=== PATIENT | female | born 1935 | race African-American/Black ===

== ENCOUNTER 2016-10-28 17:03 | Observation (INO) ==
[2016-10-28] MEDS ORDERED: hydrALAZINE 20 MG/1 ML VIAL IV STA (17:33)
--- NOTE | 2016-10-28 17:38 | Emergency Department Note ---
Arrival - Arrival Chief Complaint: Non-Specific Stated Complaint: DIZZIE & HEADACHE ED Nursing Triage Note: c/o light headed. pt had it beofre and was told she was having a reaction to her bp meds Mode of Arrival: Ambulatory Limitations: No Limitations Source: Patient Time Seen by Provider: 10/28/16 17:33 - History of Present Illness HPI Narrative: This 81-year-old black female presents with a history of several weeks of intermittent lightheadedness and dizziness associated with labile blood pressure. She had a very severe problem with lightheadedness in the grocery store late yesterday during which she had near syncope. She denies any nausea, vomiting, chest pain, shortness of breath, or diaphoresis in association with this. Her primary care physician has been trying various blood pressure medications which do not seem to be doing the job as her blood pressure remains high most the time. In this regard she denies headaches, slurred speech, visual changes, or focal deficits. She does have a complaint of a buzzing in her head ever since problems with blood pressure stability began. She describes it more as a blowing sound and this was especially bad during her episode yesterday. Currently she presents dizzy but in no medical distress. Onset (ago): week(s) (Patient presents several weeks post onset of symptoms) Allergies/Adverse Reactions: Allergies Allergy/AdvReac Type Severity Reaction Status Date / Time Penicillins Allergy Unknown/Unable Verified 08/20/16 20:39 to obtain Sulfa (Sulfonamide Allergy Unknown/Unable Verified 08/20/16 20:39 Antibiotics) to obtain Home Medications: Home Medications Medication Instructions Recorded Confirmed Type Rosuvastatin [Crestor] 10 mg PO DAILY 11/03/14 10/28/16 History amLODIPine [Norvasc] 5 mg PO DAILY #30 tablet 08/20/16 10/28/16 Rx Albuterol Sulfate [Proair HFA] 2 puff INH Q4H PRN 10/28/16 10/28/16 History Albuterol Sulfate [Proair HFA] 2 puff INH Q4H PRN 10/28/16 10/28/16 History Aspirin EC Tab 81 mg PO BEDTIME 10/28/16 10/28/16 History Fluticasone/Vilanterol [Breo 1 puff INH DAILY 10/28/16 10/28/16 History Ellipta 200-25 Mcg INH] Naproxen Sodium [Aleve] 440 mg PO DAILY 10/28/16 10/28/16 History Review of System - Review of System 12 point system: reviewed and no additional remarkable complaints except as stated - Review of System Constitutional: Present: as per HPI Respiratory: Present: as per HPI Cardiovascular: Present: as per HPI Gastrointestinal: Present: as per HPI Neurological: Present: as per HPI Medical,Surgical,& Family Hx - Medical History Cardio: History of: Hypertension Respiratory: History of: Respiratory Problems (uses an inhaler) Gastrointestinal: History of: Diverticulitis/ Diverticulosis (several years ago) Musculoskeletal: History of: Musculoskeletal Problems (right hip problem) - Surgical History Reproductive Surgeries: Surgical HX of;: Hysterectomy - Social History Smoking Status: Never smoker Frequency of Alcohol Use: None Type of Drug Use: None Exam Physical Examination: GENERAL: Well developed, well nourished elderly black female in no acute distress. HEENT: Normocephalic. No trauma. Moist mucous membranes. EOMI. PERRLA. ENT NML NECK: Supple. No adenopathy. CARDIAC: Regular. 1/4 alejandro, loud p2, heart rate 85 CHEST: Clear to auscultation. No respiratory distress. O2 sat 95% ABDOMEN: Soft. Nontender. Active bowel sounds. EXTREMITIES: No trauma. Normal ROM. No pedal edema. SKIN: No diaphoresis. No rash. NEURO: Alert. Oriented 3. Motor, sensory, vibratory intact. No focal deficits. Vital Signs: Vital Signs Temperature 98.2 F 10/28/16 17:43 Pulse Rate 84 10/28/16 18:30 Respiratory Rate 18 10/28/16 18:30 Blood Pressure 121/76 10/28/16 18:30 O2 Sat by Pulse Oximetry 98 10/28/16 18:30 Course Course Narrative: During the course of her stay, at the point in time discharge was considered, the patient started to complain of nausea which initially responded to Zofran but simultaneously dropped her pressure and had EKG changes through the septum and lateral wall. For this reason she was to be admitted for further evaluation. - Reevaluation(s) Reevaluation #1: Advised patient given her change in symptoms as well as EKG she will need to be hospitalized for further evaluation. - Consultations Consultation #1: Discussed with hospitalist service who will admit for further evaluation treatment Results - Labs CBC & BMP: 10/28/16 17:53 10/28/16 17:53 Labs: I have noted the elevated BNP normal troponin and infected urine. - Impressions EKG: Sinus rhythm at 91 with normal HI interval and QRS duration. Nonspecific ST changes but no acute injury pattern noted. - Diagnostic Findings Procedure: Chest x-ray: image reviewed by me, report reviewed by me (No interval change with cardiomegaly, hiatal hernia, emphysema, and right pulmonary nodule), CT: image reviewed by me, report reviewed by me (Head: Generalized cerebral atrophy with microvascular ischemia otherwise no acute findings.) Disposition Clinical Impression: EKG changes, Transient hypotension, Cystitis Case discussed with: patient, patient's family Disposition: Still a Patient Condition: Guarded Time of Disposition: 20:01
--- NOTE | 2016-10-28 18:01 | CT Report ---
CT head/brain wo con Indication: Dizziness Comparison: CT head 02/10/2015. Technique: CT of the brain was performed without administration of intravenous contrast. The CT examination was performed using one or more of the following dose reduction techniques: Automatic exposure control, adjustment of the mA and kV according to patient size, use of acute or iterative reconstruction techniques. Findings: There is no evidence of acute intracranial mass, hemorrhage, or infarction. Generalized cerebral atrophy is present. Areas of decreased attenuation within the periventricular white matter and cerebral white matter are present which could be compatible with microvascular ischemia. Bilateral basal ganglia calcifications are present. The basal cisterns are patent. No significant abnormality is demonstrated to involve the posterior fossa or cerebellum. Orbits and globes demonstrate no evidence of significant pathology. The paranasal sinuses are clear. No significant abnormality is demonstrated to involve the mastoid air cells. The calvarium and overlying soft tissues demonstrate no evidence of acute pathology. Impression: 1. No CT evidence of acute intracranial pathology. 10/28/2016 5:57 PM PROCEDURE INTERPRETED AT [facility] DEPARTMENT OF RADIOLOGY Final Report Signed by: Dr. David Alicea
[2016-10-28 18:04] LABS: Basophils # 0.1 10*3/uL (0.0-0.2); Basophils % 0.8 % (0.0-0.8); Eosinophils # 0.8 10*3/uL (0.0-0.87); Eosinophils % 9.8 % (0.00-10.9); Hematocrit 40.4 VOL% (35.7-47.0); Immature Granulocytes % 0.2 %; Immature Granulocytes Absolute 0.02 #; Lymphocytes # 2.4 10*3/uL (1.4-4.0); Lymphocytes % 28.2 % (21.3-54.2); Mean Corpuscular HGB Conc 34.7 GM/DL (32-36); Mean Corpuscular Hemoglobin 31 PG (27-34); Mean Corpuscular Volume 90.6 FL (87-102); Mean Platelet Volume 10.5 FL (9.6-12.0); Monocytes # 1.2 10*3/uL (0.11-0.8); Monocytes % 13.9 % (1.7-12.7); Neutrophils # 3.9 10*3/uL (1.4-7.4); Neutrophils % 47.1 % (38.7-73.9); Platelet Count 183 T/CUMM (130-400); Red Blood Count 4.46 MC/CUMM (3.8-5.5); Red Cell Distribution Width 14.1 % (9.3-17.3); White Blood Count 8.4 T/CUMM (4-12)
[2016-10-28] MEDS ORDERED: hydrALAZINE 20 MG/1 ML VIAL ONE (18:04)
--- NOTE | 2016-10-28 18:05 | XRay Report ---
XR chest 2V Indication: Shortness of breath. Comparison: Chest x-ray 07/08/2013. CT chest 07/03/2016. Technique: PA and lateral chest x-ray was performed. Findings: The heart is borderline in size, stable. Mild to moderate ectasia of the thoracic aorta is again demonstrated. Additionally there is a moderately sized hiatal hernia with air-fluid level present. Pulmonary vasculature demonstrates no specific abnormality. Hilar structures demonstrate fairly symmetric appearance. The lungs appear minimally hyperinflated on the lateral image and within the mid right lung, there is a nodular density similar in appearance to prior study. Opacity in the left lung apex also has probably changed little since comparison. Bones and soft tissues demonstrate no evidence of acute pathology. Impression: 1. Stable appearance of emphysematous chest. Mild cardiomegaly, hiatal hernia, and right-sided pulmonary nodule are again demonstrated. Nodular density left upper lung has changed little since comparison. On CT this appears to represent a combination of airspace attenuation groundglass attenuation possibly reflects infectious or inflammatory process. Surveillance will be required to determine stability if tissue sampling is not performed. 10/28/2016 5:59 PM PROCEDURE INTERPRETED AT [facility] DEPARTMENT OF RADIOLOGY Final Report Signed by: Dr. David Alicea
[2016-10-28 18:14] LABS: INR 1.2; PT Patient Result 12.7 SECS
[2016-10-28 18:26] LABS: Apearance,Urine CLEAR (Clear); Bilirubin,Urine Negative (Negative); Blood, Urine Negative (Negative); Glucose,Urine (UA) Negative (Negative); Hyaline Casts,Urine 2 /LPF (0-3); Ketones,Urine Negative (Negative); Nitrite,Urine Negative (Negative); Protein,Urine Negative; RBC,Urine 2 /HPF (0-4); Squamous Epithelial Cell,Urine Occasional /HPF (0-10); Urine Color Yellow (Yellow); Urine Specific Gravity 1.011 (1.001-1.035); Urine Urobilinogen < 2.0 EU/DL (0.2-1.0); WBC,Urine 18 /HPF (0-6)
[2016-10-28 18:31] LABS: Barbiturates Screen,Urine Negative (Negative); Benzodiazepines Screen,Urine Negative (Negative); Cannabinoid Screen,Urine Negative (Negative); Opiate Screen,Urine Negative (Negative); Phencyclidine Screen,Urine Negative (Negative)
[2016-10-28 18:39] LABS: Alanine Aminotransferase 20 U/L (13-56); Albumin 3.4 G/DL (3.4-5.0); Alkaline Phosphatase 94 U/L (45-117); Aspartate Amino Transferase 22 U/L (0-37); Bilirubin,Total < 0.39 MG/DL (0.2-1.0); Blood Urea Nitrogen 16 MG/DL (7-18); Calcium 9.3 MG/DL (8.5-10.1); Free T4 (Free Thyroxine) 1.04 NG/DL (0.76-1.46); Glucose 149 MG/DL (74-106); Potassium 4.1 MMOL/L (3.5-5.1); Sodium 143 MMOL/L (136-145); Total Protein 6.8 G/DL (6.4-8.3); Troponin I Only 0.037 NG/ML (0.00-0.045)
[2016-10-28] MEDS ORDERED: FUROSEMIDE 40 MG/4 ML VIAL IV STA (18:49)
[2016-10-28] MEDS ORDERED: LEVOFLOXACIN INJ 750 MG in PREMIX 1 EACH IV STA (18:49)
[2016-10-28] MEDS ORDERED: LEVOFLOXACIN INJ 0 ML IV ONE (19:13)
[2016-10-28] MEDS ORDERED: SODIUM CHLORIDE 0.9% 0 ML IV ONE (19:13)
[2016-10-28] MEDS ORDERED: FUROSEMIDE 40 MG/4 ML VIAL ONE (19:13)
[2016-10-28] MEDS ORDERED: LEVOFLOXACIN 750 MG TABLET PO STA (19:16)
[2016-10-28] MEDS ORDERED: LEVOFLOXACIN 750 MG TABLET ONE (19:17)
[2016-10-28] MEDS ORDERED: ONDANSETRON ODT 4 MG TABLET PO ONE (19:29)
--- NOTE | 2016-10-28 20:21 | Hospitalist History & Physical ---
Assessment and Plan (1) Dizziness Status: Acute Assessment and plan: check orthostatics, ns bolus and IVF, hold norvasc. Current Visit: Yes (2) COPD (chronic obstructive pulmonary disease) Status: Acute Assessment and plan: duoneb and solumedrol Current Visit: Yes (3) UTI (urinary tract infection) Status: Acute Assessment and plan: cipro IV 400 mg q 12hr Current Visit: Yes (4) EKG abnormalities Status: Acute Assessment and plan: serial troponins, serial ekg and echocardiogram Current Visit: Yes (5) Asthma Status: Acute Assessment and plan: duonebs and solumedrol Current Visit: Yes History of Present Illness Chief complaint: Just didnt feel good History of present illness: Ms. Christine is a 81 year old female with a history of several weeks of intermittent lightheadedness and dizziness associated with labile blood pressure. She had a very severe problem with lightheadedness in the grocery store late yesterday during which she had near syncope. She denies any nausea, vomiting, chest pain, shortness of breath, or diaphoresis in association with this. Her primary care physician has been trying various blood pressure medications which do not seem to be doing the job as her blood pressure remains high most the time. Patient also noted to have a uti, will treat with cipro and will check blood cx Home Medications Medication Instructions Recorded Confirmed Type Rosuvastatin [Crestor] 10 mg PO DAILY 11/03/14 10/28/16 History amLODIPine [Norvasc] 5 mg PO DAILY #30 tablet 08/20/16 10/28/16 Rx Albuterol Sulfate [Proair HFA] 2 puff INH Q4H PRN 10/28/16 10/28/16 History Albuterol Sulfate [Proair HFA] 2 puff INH Q4H PRN 10/28/16 10/28/16 History Aspirin EC Tab 81 mg PO BEDTIME 10/28/16 10/28/16 History Fluticasone/Vilanterol [Breo 1 puff INH DAILY 10/28/16 10/28/16 History Ellipta 200-25 Mcg INH] Naproxen Sodium [Aleve] 440 mg PO DAILY 10/28/16 10/28/16 History Allergies Allergy/AdvReac Type Severity Reaction Status Date / Time Penicillins Allergy Unknown/Unable Verified 08/20/16 20:39 to obtain Sulfa (Sulfonamide Allergy Unknown/Unable Verified 08/20/16 20:39 Antibiotics) to obtain Medical,Surgical,& Family Hx - Medical History Cardio: History of: Hypertension Endocrine: History of: Dyslipidemia No history of: Diabetes Mellitus (IDDM) Respiratory: History of: Asthma, Respiratory Problems (uses an inhaler) Gastrointestinal: History of: Diverticulitis/ Diverticulosis (several years ago) Musculoskeletal: History of: Musculoskeletal Problems (right hip problem) - Surgical History Reproductive Surgeries: Surgical HX of;: Hysterectomy - Family History Additional Family History: mom when she was [age]. does not know dads history - Social History Smoking Status: Never smoker Frequency of Alcohol Use: None Type of Drug Use: None Marital Status: Single Lives With:: Alone Functional capacity: independent ambulation - Constitutional Constitutional: Present: weakness. Absent: fever(s), headache(s) - EENT Eyes: Absent: blurry vision, diplopia Ears: Absent: decreased hearing, ear discharge Nose, mouth and throat: Absent: headache(s), sore throat - Cardiovascular Cardiovascular: Present: dyspnea, dyspnea on exertion. Absent: chest pain at rest, chest pain with activity - Respiratory Respiratory: Present: cough, dyspnea, dyspnea on exertion. Absent: wheezing - Gastrointestinal Gastrointestinal: Absent: abdominal pain, nausea, vomiting - Genitourinary Genitourinary: Absent: difficulty urinating, dysuria - Musculoskeletal Musculoskeletal: Absent: arthralgias, muscle cramps - Neurological Neurological: Present: headache(s). Absent: syncope - Psychiatric Psychiatric: Absent: anxiety, depression - Endocrine Endocrine: Absent: cold intolerance, fatigue - Hematologic/Lymphatic Hematologic/Lymphatic: Absent: easy bleeding, easy bruising Exam - Constitutional Vitals: Period Temp Pulse Resp BP Sys/Shaffer Pulse Ox Last 24 Hr 98.2 F-98.2 F 70-85 18-20 121-171/76-103 95-100 General appearance: normal weight, no acute distress - Head Head exam: Present: normal inspection, normocephalic - Eye Eye exam: Present: EOMI. Absent: scleral icterus Pupils: Present: BEA, normal accommodation - ENT ENT exam: Present: normal exam, normal external ear exam - Neck Neck exam: Absent: lymphadenopathy, thyromegaly - Respiratory Respiratory exam: Present: clear to auscultation bilaterally, decreased breath sounds. Absent: rhonchi, wheezes - Cardiovascular Cardiovascular exam: Present: regular rate and rhythm. Absent: systolic murmur - GI/Abdominal GI/Abdominal exam: Present: normal bowel sounds, soft. Absent: tenderness - Extremities Exam Extremities exam: Present: normal inspection, normal capillary refill - Neurological Exam Neurological exam: Present: alert, oriented X3, CN II-XII intact, reflexes normal. Absent: motor sensory deficit - Psychiatric Psychiatric exam: Present: normal affect, normal mood - Skin Skin exam: Present: normal color, warm Results - Labs CBC & BMP: 10/28/16 17:53 10/28/16 17:53 Lab Results: I have reviewed the past 24 hour labs - EKG EKG shows: sinus rhythm (lateral Twave changes ) - Diagnostic Findings Procedure: Chest x-ray: report reviewed by me (copd ), CT: report reviewed by me (nothing acute )
[2016-10-28 20:52] LABS: Troponin I Only 0.042 NG/ML (0.00-0.045)
[2016-10-28] MEDS ORDERED: ACETAMINOPHEN 325 MG TABLET PO PRN (23:05)
[2016-10-28] MEDS ORDERED: ONDANSETRON 4 MG/2 ML VIAL IV PRN (23:05)
[2016-10-28] MEDS ORDERED: SODIUM CHLORIDE 0.9% 500 ML IV ONE (23:05)
[2016-10-28] MEDS ORDERED: ASPIRIN EC 81 MG TABLET PO SCH (23:05)
[2016-10-28] MEDS ORDERED: SODIUM CHLORIDE 0.9% 1,000 ML IV SCH (23:30)
[2016-10-29 00:33] LABS: Free T4 (Free Thyroxine) 1.02 NG/DL (0.76-1.46)
[2016-10-29 00:38] LABS: Troponin I Only 0.05 NG/ML (0.00-0.045)
[2016-10-29 00:54] LABS: Magnesium 2.4 MG/DL (1.8-2.4); Thyroid Stimulating Hormone 1.75 uIU/ml (0.358-3.74)
[2016-10-29] MEDS: methylPREDNISolone SOD SUC 40 MG/1 ML VIAL IV SCH ×2 (02:23→06:51)
[2016-10-29] MEDS: ALBUTEROL/IPRATROPIUM 3 ML NEB RESP TX SCH ×2 (02:28→07:50)
--- NOTE | 2016-10-29 02:28 | EKG Report ---
Stationary ECG Study [facility] ER Test Date: 10/28/2016 7:48:50 PM Pat Name: CRISTINA MARCELO Department: Room: 290 Gender: F Church Business Administrator: : 1935 Requested by: Fer Abreu Order Number: [id number] Nuris MD: MARS DRIVER Intervals [place] Rate: 62 P: 39 MD: 165 QRS: 65 QRSD: 83 T: -33 QT: 398 QTc: 403 Interpretive Statements SINUS RHYTHM MODERATE T-WAVE ABNORMALITY, CONSIDER ANTEROLATERAL ISCHEMIA Electronically Signed On 10-29-16 05:29:54 CDT by MARS DRIVER [email or web address]
[2016-10-29 05:13] LABS: Basophils # 0.1 10*3/uL (0.0-0.2); Basophils % 0.7 % (0.0-0.8); Eosinophils # 0.5 10*3/uL (0.0-0.87); Eosinophils % 5.5 % (0.00-10.9); Hematocrit 37.7 VOL% (35.7-47.0); Hemoglobin 12.8 GM/DL (12.0-16.0); Immature Granulocytes % 0.2 %; Immature Granulocytes Absolute 0.02 #; Lymphocytes # 3.1 10*3/uL (1.4-4.0); Lymphocytes % 31.6 % (21.3-54.2); Mean Corpuscular Hemoglobin 31 PG (27-34); Mean Corpuscular Volume 91.3 FL (87-102); Mean Platelet Volume 10.4 FL (9.6-12.0); Monocytes # 1.4 10*3/uL (0.11-0.8); Monocytes % 14.7 % (1.7-12.7); Neutrophils # 4.6 10*3/uL (1.4-7.4); Neutrophils % 47.3 % (38.7-73.9); Platelet Count 190 T/CUMM (130-400); Red Blood Count 4.13 MC/CUMM (3.8-5.5); Red Cell Distribution Width 14.2 % (9.3-17.3); White Blood Count 9.7 T/CUMM (4-12)
--- NOTE | 2016-10-29 06:01 | EKG Report ---
Stationary ECG Study [facility] ER Test Date: 10/28/2016 6:19:38 PM Pat Name: CRISTINA MARCELO Department: Room: 290 Gender: F Briquetter Operator: : 1935 Requested by: Fer Abreu Order Number: [id number] Reading MD: CHUCK MADERA Intervals [place] Rate: 91 P: 109 SC: 177 QRS: 73 QRSD: 85 T: 127 QT: 321 QTc: 369 Interpretive Statements SINUS RHYTHM MODERATE T-WAVE ABNORMALITY, CONSIDER LATERAL ISCHEMIA BIATRIAL ABNORMALITY Electronically Signed On 10-29-16 07:48:14 CDT by CHUCK MADERA [email or web address]
[2016-10-29 06:13] LABS: Calcium 9.2 MG/DL (8.5-10.1); Osmolality,Calculated 285.8 MOS/KG (273-304); Potassium 4.3 MMOL/L (3.5-5.1)
--- NOTE | 2016-10-29 07:43 | EKG Report ---
Stationary ECG Study [facility] Test Date: 10/29/2016 7:42:59 AM Pat Name: CRISTINA MARCELO Department: Room: 290 Gender: F Smash Fixer: : 1935 Requested by: Zeny Duenas Order Number: [id number] Reading MD: CHAN JONAS Intervals [place] Rate: 80 P: 67 IN: 186 QRS: 72 QRSD: 86 T: -61 QT: 363 QTc: 398 Interpretive Statements SINUS RHYTHM MODERATE T-WAVE ABNORMALITY, CONSIDER ANTEROLATERAL ISCHEMIA MODERATE T-WAVE ABNORMALITY, CONSIDER INFERIOR ISCHEMIA Electronically Signed On 10-29-16 13:27:47 CDT by CHAN JONAS [id number]
[2016-10-29] MEDS ORDERED: PANTOPRAZOLE 40 MG TABLET PO SCH (09:00)
[2016-10-29] MEDS ORDERED: NON-FORMULARY MEDICATION (Fluticasone/Vilanterol [Breo Ellipta 200-25 Mcg Inh] 1 PUFF) INH SCH (09:00)
[2016-10-29] MEDS ORDERED: amLODIPine 10 MG TABLET PO ONE (10:48)
[2016-10-29] MEDS ORDERED: FUROSEMIDE 20 MG/2 ML VIAL IV ONE (10:48)
--- NOTE | 2016-10-29 10:51 | Discharge Summary ---
Hospital Course - Hospital Course Hospital Course: Ms. Christine is a 81 year old female with a history of several weeks of intermittent lightheadedness and dizziness associated with labile blood pressure. She had a very severe problem with lightheadedness in the grocery store late yesterday during which she had near syncope. She received some gentle hydration. She was noted to have a UTI but her culture is negative no growth thus far. She has been treated with Cipro IV and will go home on Cipro. Chest x-ray reveals that she has some chronic COPD. She is only aware that she has asthma and uses as needed inhalers. Patient has hypertension and takes Norvasc and is well controlled on Norvasc. Patient had some serial troponins which were mildly elevated. Her EKG shows some ST depression in the inferior and lateral leads. I would like her to have an outpatient stress test. I have set her stress test up for Thursday after she finishes treatment for her UTI. She will also follow up with Dr Jones as scheduled and with her PMD. - Time spent with patient Time with patient DS: Greater than 30 minutes (40 min) Diagnosis - Discharge Diagnosis (1) Dizziness Status: Acute (2) COPD (chronic obstructive pulmonary disease) Status: Acute (3) UTI (urinary tract infection) Status: Acute (4) EKG abnormalities Status: Acute (5) Asthma Status: Acute Discharge Plan - Discharge Data Disposition: Disch To Home/Self Care Condition at Discharge: Stable Discharge Diet: heart healthy Activity: resume usual activities as tolerated Hygiene: no restrictions Weight Bearing at Discharge: full weight bearing - Discharge Medications New Ciprofloxacin Tab [Cipro Tab] 500 mg PO BID #10 tablet Continue Rosuvastatin [Crestor] 10 mg PO DAILY amLODIPine [Norvasc] 5 mg PO DAILY #30 tablet Albuterol Sulfate [Proair HFA] 2 puff INH Q4H PRN PRN Reason: Shortness Of Breath/Wheezing Fluticasone/Vilanterol [Breo Ellipta 200-25 Mcg INH] 1 puff INH DAILY Aspirin EC Tab 81 mg PO BEDTIME Discontinued Naproxen Sodium [Aleve] 440 mg PO DAILY Albuterol Sulfate [Proair HFA] 2 puff INH Q4H PRN PRN Reason: Shortness Of Breath/Wheezing - Follow Up or Referral Follow Up: pmd, [Other] - 2 Weeks Richar Jones MD [Physician] - 11/12/16 1:00 pm - Forms/Instructions Additional Discharge Instructions: outpatient stress test for through [facility] on November 03 at 10:[address] Jones November 12 at 1:00 pm Exam - Constitutional Vitals: Period Temp Pulse Resp BP Sys/Shaffer Pulse Ox Last 24 Hr 97.7 F-99.1 F 70-85 12-20 120-208/71-108 95-100 General appearance: normal weight, no acute distress - Respiratory Respiratory exam: Present: clear to auscultation bilaterally - Cardiovascular Cardiovascular exam: Present: regular rate and rhythm. Absent: systolic murmur - GI/Abdominal GI/Abdominal exam: Present: normal bowel sounds, soft. Absent: tenderness - Extremities Exam Extremities exam: Present: normal inspection, normal capillary refill - Neurological Exam Neurological exam: Present: alert, oriented X3 - Psychiatric Psychiatric exam: Present: normal affect, normal mood - Skin Skin exam: Present: normal color, warm Discharge Results Procedures and tests throughout hospitalization: Pending Orders 10/28/16 Urine Culture Routine 10/28/16 23:50 Blood Culture Stat Labs on day of discharge: Labs from last 24 hours 10/29/16 10/29/16 10/29/16 03:40 03:40 03:40 WBC 9.7 RBC 4.13 Hgb 12.8 Hct 37.7 MCV 91.3 MCH 31 MCHC 34.0 RDW 14.2 Plt Count 190 MPV 10.4 Neut % (Auto) 47.3 Lymph % (Auto) 31.6 [place] % (Auto) 14.7 H Eos % (Auto) 5.5 Baso % (Auto) 0.7 Neut # (Auto) 4.6 Lymph # (Auto) 3.1 [place] # (Auto) 1.4 H Eos # (Auto) 0.5 Baso # (Auto) 0.1 Immature Gran % 0.2 Nucleated RBC % 0.0 Immature Gran # 0.02 Nucleated RBCs # 0.00 Immature Plt Fraction 0.0 INR PT Patient/Control Mix Sodium 144 Potassium 4.3 Chloride 110 H Carbon Dioxide 27 Anion Gap 11.3 BUN 17 Creatinine 1.30 H GFR Calculation 47 BUN/Creatinine Ratio 13.00 Glucose 71 L Calculated Osmolality 285.8 Calcium 9.2 Magnesium Total Bilirubin AST ALT Alkaline Phosphatase Total Creatine Kinase CK-MB (CK-2) Troponin I 0.036 B-Natriuretic Peptide Total Protein Albumin Globulin Albumin/Globulin Ratio Free T4 TSH 3rd Generation Urine Color Urine Appearance Urine pH Ur Specific [place] Urine Protein Urine Glucose (UA) Urine Ketones Urine Blood Urine Nitrate Urine Bilirubin Urine Urobilinogen Urine Leukocytes Urine RBC Urine WBC Ur Squamous Epith Cells Hyaline Casts Ur Culture Indicated? Urine Opiates Screen Ur Barbiturates Screen Ur Phencyclidine Scrn U Amphetamine/Methamph U Benzodiazepines Scrn U Cocaine Metab Screen U Cannabinoids Screen 10/28/16 10/28/16 10/28/16 23:50 23:50 23:50 WBC RBC Hgb Hct MCV MCH MCHC RDW Plt Count MPV Neut % (Auto) Lymph % (Auto) [place] % (Auto) Eos % (Auto) Baso % (Auto) Neut # (Auto) Lymph # (Auto) [place] # (Auto) Eos # (Auto) Baso # (Auto) Immature Gran % Nucleated RBC % Immature Gran # Nucleated RBCs # Immature Plt Fraction INR PT Patient/Control Mix Sodium Potassium Chloride Carbon Dioxide Anion Gap BUN Creatinine GFR Calculation BUN/Creatinine Ratio Glucose Calculated Osmolality Calcium Magnesium 2.4 Total Bilirubin AST ALT Alkaline Phosphatase Total Creatine Kinase CK-MB (CK-2) Troponin I 0.050 H B-Natriuretic Peptide 303 H Total Protein Albumin Globulin Albumin/Globulin Ratio Free T4 1.02 TSH 3rd Generation 1.750 Urine Color Urine Appearance Urine pH Ur Specific [place] Urine Protein Urine Glucose (UA) Urine Ketones Urine Blood Urine Nitrate Urine Bilirubin Urine Urobilinogen Urine Leukocytes Urine RBC Urine WBC Ur Squamous Epith Cells Hyaline Casts Ur Culture Indicated? Urine Opiates Screen Ur Barbiturates Screen Ur Phencyclidine Scrn U Amphetamine/Methamph U Benzodiazepines Scrn U Cocaine Metab Screen U Cannabinoids Screen 10/28/16 10/28/16 10/28/16 19:53 17:53 17:53 WBC RBC Hgb Hct MCV MCH MCHC RDW Plt Count MPV Neut % (Auto) Lymph % (Auto) [place] % (Auto) Eos % (Auto) Baso % (Auto) Neut # (Auto) Lymph # (Auto) [place] # (Auto) Eos # (Auto) Baso # (Auto) Immature Gran % Nucleated RBC % Immature Gran # Nucleated RBCs # Immature Plt Fraction INR PT Patient/Control Mix Sodium Potassium Chloride Carbon Dioxide Anion Gap BUN Creatinine GFR Calculation BUN/Creatinine Ratio Glucose Calculated Osmolality Calcium Magnesium Total Bilirubin AST ALT Alkaline Phosphatase Total Creatine Kinase 141 CK-MB (CK-2) 1.4 Troponin I 0.042 B-Natriuretic Peptide 304 H Total Protein Albumin Globulin Albumin/Globulin Ratio Free T4 TSH 3rd Generation Urine Color Urine Appearance Urine pH Ur Specific [place] Urine Protein Urine Glucose (UA) Urine Ketones Urine Blood Urine Nitrate Urine Bilirubin Urine Urobilinogen Urine Leukocytes Urine RBC Urine WBC Ur Squamous Epith Cells Hyaline Casts Ur Culture Indicated? Urine Opiates Screen Negative Ur Barbiturates Screen Negative Ur Phencyclidine Scrn Negative U Amphetamine/Methamph Negative U Benzodiazepines Scrn Negative U Cocaine Metab Screen Negative U Cannabinoids Screen Negative 10/28/16 10/28/16 10/28/16 17:53 17:53 17:53 WBC RBC Hgb Hct MCV MCH MCHC RDW Plt Count MPV Neut % (Auto) Lymph % (Auto) [place] % (Auto) Eos % (Auto) Baso % (Auto) Neut # (Auto) Lymph # (Auto) [place] # (Auto) Eos # (Auto) Baso # (Auto) Immature Gran % Nucleated RBC % Immature Gran # Nucleated RBCs # Immature Plt Fraction INR 1.2 PT Patient/Control Mix 12.7 Sodium 143 Potassium 4.1 Chloride 109 H Carbon Dioxide 26 Anion Gap 12.1 BUN 16 Creatinine 1.10 H GFR Calculation 57 BUN/Creatinine Ratio 14.00 Glucose 149 H Calculated Osmolality 288.0 Calcium 9.3 Magnesium Total Bilirubin < 0.39 AST 22 ALT 20 Alkaline Phosphatase 94 Total Creatine Kinase 148 CK-MB (CK-2) 1.5 Troponin I 0.037 B-Natriuretic Peptide Total Protein 6.8 Albumin 3.4 Globulin 3.4 Albumin/Globulin Ratio 1.0 L Free T4 1.04 TSH 3rd Generation 2.070 Urine Color Yellow Urine Appearance Clear Urine pH 5.0 Ur Specific [place] 1.011 Urine Protein Negative Urine Glucose (UA) Negative Urine Ketones Negative Urine Blood Negative Urine Nitrate Negative Urine Bilirubin Negative Urine Urobilinogen < 2.0 H Urine Leukocytes Large H Urine RBC 2 Urine WBC 18 Ur Squamous Epith Cells Occasional Hyaline Casts 2 Ur Culture Indicated? Results to follow Urine Opiates Screen Ur Barbiturates Screen Ur Phencyclidine Scrn U Amphetamine/Methamph U Benzodiazepines Scrn U Cocaine Metab Screen U Cannabinoids Screen 10/28/16 17:53 WBC 8.4 RBC 4.46 Hgb 14.0 Hct 40.4 MCV 90.6 MCH 31 MCHC 34.7 RDW 14.1 Plt Count 183 MPV 10.5 Neut % (Auto) 47.1 Lymph % (Auto) 28.2 [place] % (Auto) 13.9 H Eos % (Auto) 9.8 Baso % (Auto) 0.8 Neut # (Auto) 3.9 Lymph # (Auto) 2.4 [place] # (Auto) 1.2 H Eos # (Auto) 0.8 Baso # (Auto) 0.1 Immature Gran % 0.2 Nucleated RBC % 0.0 Immature Gran # 0.02 Nucleated RBCs # 0.00 Immature Plt Fraction 0.0 INR PT Patient/Control Mix Sodium Potassium Chloride Carbon Dioxide Anion Gap BUN Creatinine GFR Calculation BUN/Creatinine Ratio Glucose Calculated Osmolality Calcium Magnesium Total Bilirubin AST ALT Alkaline Phosphatase Total Creatine Kinase CK-MB (CK-2) Troponin I B-Natriuretic Peptide Total Protein Albumin Globulin Albumin/Globulin Ratio Free T4 TSH 3rd Generation Urine Color Urine Appearance Urine pH Ur Specific [place] Urine Protein Urine Glucose (UA) Urine Ketones Urine Blood Urine Nitrate Urine Bilirubin Urine Urobilinogen Urine Leukocytes Urine RBC Urine WBC Ur Squamous Epith Cells Hyaline Casts Ur Culture Indicated? Urine Opiates Screen Ur Barbiturates Screen Ur Phencyclidine Scrn U Amphetamine/Methamph U Benzodiazepines Scrn U Cocaine Metab Screen U Cannabinoids Screen Preliminary micro results at discharge 10/28/16 Unknown Urine Culture - Preliminary Urine,Voided No Growth at 12 hours. DS: Provider Date of admission: 10/28/16 20:11 Primary care physician: Cristi Singleton MD Attending physician on admission: Richar Bethea MD Discharging clinician: Zeny Brewer MD
[2016-10-29] MEDS: ROSUVASTATIN 10 MG TABLET PO SCH ×2 (11:05→11:09)
[2016-10-29 13:26] VITALS: BP 158/88
--- NOTE | 2016-10-29 18:17 | ECHO Report ---
[place] Christine Exam Date: 10/29/2016 11:48 Referring Physician: Technologist: Jewels Begum RDCS Age: 81 Ht (in): 67 Wt (lb): 154 Gender: F Exam Location: [facility] Echo Indications: Dizziness and giddiness, Abnormal electrocardiogram [ECG] [EKG], COPD, UTI, Asthma, Near syncope BP: 126 / 74 HR: 81 Rhythm: Sinus Technical Quality: Good IMPRESSIONS Normal LV systolic function, ejection fraction 60%. Grade 1/4 diastolic dysfunction. Mild left atrial enlargement. Right-sided chamber dilation and right ventricular hypokinesis with increased trabeculation (consistent with pulmonary hypertension). Mild mitral regurgitation. Aortic sclerosis without stenosis, mild aortic regurgitation. Severe tricuspid regurgitation. Mild pulmonic regurgitation. Focal calcification in the aortic root above the right coronary cusp. Severe pulmonary hypertension with pulmonary artery pressure estimated at 126 m mercury. MEASUREMENTS (Male / Female) Normal Values 2D ECHO LV Diastolic Diameter PLAX 3.9 cm 4.2 - 5.9 / 3.9 - 5.3 cm LV Systolic Diameter PLAX 2.0 cm LV Fractional Shortening PLAX 49.4 % IVS Diastolic Thickness 0.9 cm 0.6 - 1.0 / 0.6 - 0.9 cm LVPW Diastolic Thickness 1.0 cm 0.6 - 1.0 / 0.6 - 0.9 cm RV Internal Dim ED PLAX 3.3 cm Aortic Root Diameter 3.3 cm LA Systolic Diameter LX 3.3 cm 3.0 - 4.0 / 2.7 - 3.8 cm DOPPLER TR Peak Velocity 538.0 cm/s TR Peak Gradient 115.8 mmHg FINDINGS Left Ventricle Normal left ventricular cavity size. Normal left ventricular wall thickness. Left ventricular ejection fraction is estimated at 60 %. Right Ventricle Mild dilation with hypokinesis and increased trabeculation. Right Atrium Moderately increased right atrial size. Left Atrium Mildly increased left atrial size. Mitral Valve Mildly thickened mitral valve. Mild mitral valve regurgitation. Aortic Valve Moderate aortic valve calcification. Mild aortic valve regurgitation. Tricuspid Valve Morphologically normal tricuspid valve. Severe tricuspid valve regurgitation. Tricuspid regurgitation velocities suggest a PAP of 126 mmHg. Pulmonic Valve Morphologically normal pulmonic valve. Mild pulmonary valve regurgitation. Pericardium Normal pericardium without effusion. Aorta Normal ascending aorta dimension. There is a focal calcification in the aortic root. Jade Martin MD (Electronically Signed) Final Date: 29 October 2016 18:16
[2016-10-29] MEDS ORDERED: CIPROFLOXACIN INJ 400 MG in PREMIX 1 EACH IV SCH (21:00)
== END 2016-10-29 11:44 | disposition home or self-care (01) ==
LOC: N.ED 17:03 → N.EDINP 17:03 → SUATTDRO 20:11 → N.TELEN 20:47
PROVIDERS: ADMIT Internal Medicine; ATTEND Internal Medicine

== ENCOUNTER 2017-01-26 11:07 | Inpatient (IN) ==
[2017-01-26] MEDS ORDERED: ONDANSETRON 4 MG/2 ML VIAL IV STA ×2 (11:31→13:20)
[2017-01-26] MEDS ORDERED: ONDANSETRON 4 MG/2 ML VIAL ONE ×2 (12:19→13:14)
[2017-01-26] MEDS ORDERED: LEVOFLOXACIN INJ 500 MG in PREMIX 1 EACH IV STA (12:38)
[2017-01-26] MEDS ORDERED: metroNIDAZOLE INJ 500 MG in PREMIX 1 EACH IV STA (12:38)
[2017-01-26 12:39] LABS: Basophils # 0.1 10*3/uL (0.0-0.2); Basophils % 0.5 % (0.0-0.8); Eosinophils # 0.1 10*3/uL (0.0-0.87); Eosinophils % 0.6 % (0.00-10.9); Hematocrit 45.2 VOL% (35.7-47.0); Hemoglobin 15.9 GM/DL (12.0-16.0); Immature Granulocytes % 0.5 %; Immature Granulocytes Absolute 0.05 #; Lymphocytes # 1.9 10*3/uL (1.4-4.0); Lymphocytes % 18.4 % (21.3-54.2); Mean Corpuscular HGB Conc 35.2 GM/DL (32-36); Mean Corpuscular Hemoglobin 31 PG (27-34); Mean Corpuscular Volume 87.9 FL (87-102); Mean Platelet Volume 10.1 FL (9.6-12.0); Monocytes # 1.6 10*3/uL (0.11-0.8); Monocytes % 15.9 % (1.7-12.7); Neutrophils # 6.5 10*3/uL (1.4-7.4); Neutrophils % 64.1 % (38.7-73.9); Platelet Count 221 T/CUMM (130-400); Red Blood Count 5.14 MC/CUMM (3.8-5.5); Red Cell Distribution Width 13.2 % (9.3-17.3); White Blood Count 10.1 T/CUMM (4-12)
[2017-01-26 12:45] LABS: Apearance,Urine CLEAR (Clear); Bacteria,Urine Occasional /HPF (Few); Bilirubin,Urine Negative (Negative); Blood, Urine Negative (Negative); Glucose,Urine (UA) Negative (Negative); Hyaline Casts,Urine 2 /LPF (0-3); Ketones,Urine Negative (Negative); Mucus,Urine Occasional /LPF (Occasional); Nitrite,Urine Negative (Negative); Protein,Urine Negative; RBC,Urine <1 /HPF (0-4); Squamous Epithelial Cell,Urine Occasional /HPF (0-10); Urine Color Yellow (Yellow); Urine Specific Gravity 1.005 (1.001-1.035); Urine Urobilinogen < 2.0 EU/DL (0.2-1.0); WBC,Urine 2 /HPF (0-6)
[2017-01-26 12:58] LABS: Band Neutrophils 2 % (0-10); Eosinophils 1 % (0-10); Hypochromasia 1+; Lymphocytes 17 % (20-55); Segmented Neutrophils 71 % (50-85); Total Cells Counted 100
[2017-01-26 12:59] LABS: Microcytosis Slight; Ovalocytes 1+
[2017-01-26 13:00] LABS: Platelet Estimate Normal
[2017-01-26] MEDS ORDERED: HYDROmorphone 2 MG/1 ML VIAL ONE (13:15)
[2017-01-26] MEDS ORDERED: LEVOFLOXACIN INJ 100 ML IV ONE (13:15)
[2017-01-26 13:20] LABS: Albumin 3.2 G/DL (3.4-5.0); Bilirubin,Total 0.7 MG/DL (0.2-1.0); Calcium 9.1 MG/DL (8.5-10.1); Magnesium 2.4 MG/DL (1.8-2.4); Total Protein 7.3 G/DL (6.4-8.3)
[2017-01-26] MEDS ORDERED: HYDROmorphone 2 MG/1 ML VIAL IV STA (13:20)
[2017-01-26 13:25] LABS: Lactic Acid 2.2 MMOL/L (0.4-2.0)
[2017-01-26] MEDS ORDERED: metroNIDAZOLE 500 MG/100 ML PREMIX IV ONE (14:34)
[2017-01-26] MEDS ORDERED: MAGNESIUM SULF RIDER 4 GM in PREMIX 1 EACH IV PRN (15:24)
[2017-01-26] MEDS ORDERED: MAGNESIUM SULF RIDER 2 GM in PREMIX 1 EACH IV PRN (15:24)
[2017-01-26] MEDS ORDERED: metroNIDAZOLE INJ 500 MG in PREMIX 1 EACH IV SCH (15:30)
[2017-01-26] MEDS ORDERED: SODIUM CHLORIDE 0.9% 1,000 ML IV SCH (15:30)
[2017-01-26] MEDS ORDERED: LEVOFLOXACIN INJ 750 MG in PREMIX 1 EACH IV SCH (16:00)
[2017-01-26] MEDS: POTASSIUM CHLORIDE 20 MEQ TABLET PO SCH ×3 (17:25→23:16)
[2017-01-26] MEDS: DEXT 5% LACT RING KCL 20 MEQ 20 MEQ/1,000 ML BAG IV SCH (17:41)
[2017-01-26] MEDS: metroNIDAZOLE INJ 500 MG in PREMIX 1 EACH IV SCH (23:15)
[2017-01-27] MEDS: ONDANSETRON 4 MG/2 ML VIAL IV PRN ×2 (03:25→08:43)
[2017-01-27] MEDS: DEXT 5% LACT RING KCL 20 MEQ 20 MEQ/1,000 ML BAG IV SCH ×2 (03:26→15:10)
[2017-01-27] MEDS: metroNIDAZOLE INJ 500 MG in PREMIX 1 EACH IV SCH ×3 (06:52→22:30)
[2017-01-27 07:46] LABS: Basophils # 0.1 10*3/uL (0.0-0.2); Basophils % 0.7 % (0.0-0.8); Eosinophils # 0.1 10*3/uL (0.0-0.87); Eosinophils % 1.7 % (0.00-10.9); Hematocrit 41.5 VOL% (35.7-47.0); Hemoglobin 14.3 GM/DL (12.0-16.0); Immature Granulocytes % 0.6 %; Immature Granulocytes Absolute 0.05 #; Lymphocytes # 1.6 10*3/uL (1.4-4.0); Lymphocytes % 19.1 % (21.3-54.2); Mean Corpuscular HGB Conc 34.5 GM/DL (32-36); Mean Corpuscular Hemoglobin 31 PG (27-34); Mean Corpuscular Volume 89.4 FL (87-102); Mean Platelet Volume 11.4 FL (9.6-12.0); Monocytes # 1.2 10*3/uL (0.11-0.8); Neutrophils # 5.1 10*3/uL (1.4-7.4); Neutrophils % 62.9 % (38.7-73.9); Red Blood Count 4.64 MC/CUMM (3.8-5.5); Red Cell Distribution Width 13.3 % (9.3-17.3); White Blood Count 8.2 T/CUMM (4-12)
[2017-01-27 07:54] LABS: Platelet Count 161 T/CUMM (130-400)
[2017-01-27 08:07] LABS: Calcium 9.4 MG/DL (8.5-10.1); Magnesium 2.2 MG/DL (1.8-2.4); Osmolality,Calculated 293.3 MOS/KG (273-304); Potassium 4.4 MMOL/L (3.5-5.1)
[2017-01-27 08:11] LABS: Burr Cells Slight; Giant Platelets Few; Hypochromasia 1+; Microcytosis Slight; Ovalocytes Slight; Platelet Estimate Normal
[2017-01-27] MEDS: PANTOPRAZOLE 40 MG VIAL IV SCH (08:43)
[2017-01-27] MEDS ORDERED: MORPHINE 2 MG/1 ML SYRINGE IV PRN ×2 (09:05→09:09)
[2017-01-27] MEDS: LEVOFLOXACIN INJ 750 MG in PREMIX 1 EACH IV SCH (15:09)
[2017-01-28] MEDS: DEXT 5% LACT RING KCL 20 MEQ 20 MEQ/1,000 ML BAG IV SCH ×4 (02:47→20:16)
[2017-01-28] MEDS: metroNIDAZOLE INJ 500 MG in PREMIX 1 EACH IV SCH ×3 (06:16→22:51)
[2017-01-28] MEDS: PANTOPRAZOLE 40 MG VIAL IV SCH (08:37)
[2017-01-28] MEDS: LEVOFLOXACIN INJ 750 MG in PREMIX 1 EACH IV SCH (12:53)
[2017-01-28] MEDS: POLYETHYLENE GLYCOL POWDER 17 GM PACK PO SCH ×2 (15:37→20:15)
[2017-01-29] MEDS: DEXT 5% LACT RING KCL 20 MEQ 20 MEQ/1,000 ML BAG IV SCH ×3 (06:51→19:18)
[2017-01-29] MEDS: metroNIDAZOLE INJ 500 MG in PREMIX 1 EACH IV SCH ×2 (06:53→15:57)
[2017-01-29 07:00] LABS: Calcium 8.9 MG/DL (8.5-10.1); Magnesium 2.1 MG/DL (1.8-2.4); Osmolality,Calculated 289.4 MOS/KG (273-304); Potassium 3.6 MMOL/L (3.5-5.1)
[2017-01-29] MEDS: PANTOPRAZOLE 40 MG VIAL IV SCH (09:31)
[2017-01-29] MEDS: POLYETHYLENE GLYCOL POWDER 17 GM PACK PO SCH ×3 (09:31→21:22)
[2017-01-29] MEDS: LEVOFLOXACIN INJ 750 MG in PREMIX 1 EACH IV SCH (14:01)
[2017-01-29] MEDS: metroNIDAZOLE 500 MG TABLET PO SCH (21:22)
[2017-01-30] MEDS: DEXT 5% LACT RING KCL 20 MEQ 20 MEQ/1,000 ML BAG IV SCH ×2 (05:21→13:17)
[2017-01-30] MEDS: metroNIDAZOLE 500 MG TABLET PO SCH (05:22)
[2017-01-30] MEDS ORDERED: LACTULOSE 20 GM/30 ML UDCUP PO ONE (06:57)
[2017-01-30] MEDS ORDERED: MAGNESIUM HYDROXIDE SUSP 30 ML UDCUP PO ONE (06:57)
[2017-01-30 07:55] LABS: Calcium 8.7 MG/DL (8.5-10.1)
[2017-01-30 07:56] LABS: Magnesium 2.1 MG/DL (1.8-2.4); Osmolality,Calculated 284.7 MOS/KG (273-304); Potassium 4.5 MMOL/L (3.5-5.1)
[2017-01-30] MEDS ORDERED: LEVOFLOXACIN 750 MG TABLET PO SCH (09:00)
[2017-01-30] MEDS ORDERED: BISACODYL 10 MG SUPP RECTAL ONE (09:26)
[2017-01-30] MEDS: PANTOPRAZOLE 40 MG VIAL IV SCH (09:42)
[2017-01-30] MEDS: POLYETHYLENE GLYCOL POWDER 17 GM PACK PO SCH (10:57)
[2017-01-30 13:35] VITALS: BP 145/94
== END 2017-01-30 16:28 | disposition home health service (06) | DRG 392 ==
LOC: EDUNIT# → EDBD → N.ED 11:07 → N.EDINP 14:20 → SUATTDRO 14:20 → N.5E 15:01
PROVIDERS: ADMIT Nurse Practitioner Family; ATTEND Internal Medicine

== ENCOUNTER 2017-08-17 19:16 | Inpatient (IN) ==
[2017-08-17] MEDS ORDERED: ONDANSETRON 4 MG/2 ML VIAL IV STA ×2 (20:46→23:18)
[2017-08-17] MEDS ORDERED: NITROGLYCERIN 2% OINT 1 INCH/GM PACK TOP STA (20:46)
[2017-08-17] MEDS ORDERED: methylPREDNISolone SOD SUC 125 MG/2 ML VIAL IV STA (20:46)
[2017-08-17] MEDS ORDERED: hydrALAZINE 20 MG/1 ML VIAL IV STA (20:46)
[2017-08-17] MEDS ORDERED: FUROSEMIDE 100 MG/10 ML VIAL IV STA (20:46)
[2017-08-17] MEDS ORDERED: ALBUTEROL NEB SOLN 5 MG/ML 20 ML/BOTTLE RESP TX SCH (21:00)
[2017-08-17 21:23] LABS: Allen Test Positive
[2017-08-17 21:24] LABS: ABG Base Excess -1.2 MMOL/L (-2.5-2.5); ABG HCO3 23.3 MMOL/L (20-26); ABG Oxygen Saturation 93.9 % (95-100); ABG PCO2 32.9 MM HG (35-48); ABG PH 7.438 (7.35-7.45); ABG PO2 70.3 MM HG (80-95); ABG TCO2 19.5 MMOL/L (23-27)
[2017-08-17 22:01] LABS: Basophils # 0.1 10*3/uL (0.0-0.2); Basophils % 0.8 % (0.0-0.8); Eosinophils # 0.7 10*3/uL (0.0-0.87); Eosinophils % 8.7 % (0.00-10.9); Hematocrit 38.5 VOL% (35.7-47.0); Hemoglobin 12.9 GM/DL (12.0-16.0); Immature Granulocytes % 0.1 %; Immature Granulocytes Absolute 0.01 #; Lymphocytes # 3.1 10*3/uL (1.4-4.0); Lymphocytes % 35.8 % (21.3-54.2); Mean Corpuscular HGB Conc 33.5 GM/DL (32-36); Mean Corpuscular Hemoglobin 29 PG (27-34); Mean Corpuscular Volume 87.3 FL (87-102); Mean Platelet Volume 10.1 FL (9.6-12.0); Monocytes # 1.3 10*3/uL (0.11-0.8); Monocytes % 14.8 % (1.7-12.7); Neutrophils # 3.4 10*3/uL (1.4-7.4); Neutrophils % 39.8 % (38.7-73.9); Platelet Count 221 T/CUMM (130-400); Red Blood Count 4.41 MC/CUMM (3.8-5.5); Red Cell Distribution Width 15.7 % (9.3-17.3); White Blood Count 8.5 T/CUMM (4-12)
[2017-08-17 22:12] LABS: INR 1.2; PT Patient Result 12.3 SECS
[2017-08-17 22:27] LABS: Albumin 3.6 G/DL (3.4-5.0); Bilirubin,Total 0.7 MG/DL (0.2-1.0); Calcium 9.7 MG/DL (8.5-10.1); Osmolality,Calculated 283.3 MOS/KG (273-304); Potassium 3.7 MMOL/L (3.5-5.1); Total Protein 8.2 G/DL (6.4-8.3)
[2017-08-17 22:30] LABS: Troponin I Only 0.069 NG/ML (0.00-0.045)
[2017-08-17 23:04] LABS: Apearance,Urine CLEAR (Clear); Bacteria,Urine Occasional /HPF (Few); Bilirubin,Urine Negative (Negative); Blood, Urine Negative (Negative); Glucose,Urine (UA) Negative (Negative); Ketones,Urine Negative (Negative); Mucus,Urine Occasional /LPF (Occasional); Nitrite,Urine Negative (Negative); Protein,Urine Negative; Urine Color Yellow (Yellow); Urine Specific Gravity 1.009 (1.001-1.035); Urine Urobilinogen < 2.0 EU/DL (0.2-1.0); WBC,Urine 2 /HPF (0-6)
[2017-08-18] MEDS ORDERED: ALBUTEROL/IPRATROPIUM 3 ML NEB RESP TX PRN (01:10)
[2017-08-18] MEDS ORDERED: ACETAMINOPHEN 325 MG TABLET PO PRN (01:14)
[2017-08-18] MEDS ORDERED: ONDANSETRON 4 MG/2 ML VIAL IV PRN (01:14)
[2017-08-18] MEDS ORDERED: ALBUTEROL 2.5 MG/3 ML NEB RESP TX PRN (01:18)
[2017-08-18] MEDS ORDERED: cloNIDine 0.1 MG TABLET PO PRN (01:23)
[2017-08-18 02:05] LABS: Basophils % 0.2 % (0.0-0.8); Eosinophils % 0.2 % (0.00-10.9); Hematocrit 37.5 VOL% (35.7-47.0); Hemoglobin 12.9 GM/DL (12.0-16.0); Immature Granulocytes % 0.5 %; Immature Granulocytes Absolute 0.03 #; Lymphocytes # 0.5 10*3/uL (1.4-4.0); Mean Corpuscular HGB Conc 34.4 GM/DL (32-36); Mean Corpuscular Hemoglobin 30 PG (27-34); Mean Platelet Volume 9.6 FL (9.6-12.0); Monocytes # 0.1 10*3/uL (0.11-0.8); Monocytes % 1.3 % (1.7-12.7); Neutrophils # 5.8 10*3/uL (1.4-7.4); Neutrophils % 90.8 % (38.7-73.9); Platelet Count 216 T/CUMM (130-400); Red Blood Count 4.36 MC/CUMM (3.8-5.5); Red Cell Distribution Width 15.7 % (9.3-17.3); White Blood Count 6.4 T/CUMM (4-12)
[2017-08-18 02:30] LABS: Calcium 9.3 MG/DL (8.5-10.1); Potassium 3.2 MMOL/L (3.5-5.1); Risk Ratio 2.67; Thyroid Stimulating Hormone 1.47 uIU/ml (0.358-3.74); VLDL CHOLESTEROL 11.2 MG/DL
[2017-08-18 02:31] LABS: Band Neutrophils 7 % (0-10); Lymphocytes 8 % (20-55); Segmented Neutrophils 84 % (50-85); Total Cells Counted 100
[2017-08-18 02:32] LABS: Anisocytosis 1+; Poikilocytosis 1+
[2017-08-18] MEDS ORDERED: FUROSEMIDE 40 MG/4 ML VIAL IV SCH (08:00)
[2017-08-18] MEDS: LOSARTAN 25 MG TABLET PO SCH (08:34)
[2017-08-18] MEDS: PANTOPRAZOLE 40 MG TABLET PO SCH (08:35)
[2017-08-18] MEDS: MONTELUKAST 10 MG TABLET PO SCH (08:35)
[2017-08-18] MEDS ORDERED: Fluticasone/Vilanterol [Breo Ellipta 200-25 Mcg Inh] INH SCH (09:00)
[2017-08-18] MEDS: ROSUVASTATIN 10 MG TABLET PO SCH (09:32)
[2017-08-18] MEDS: ENOXAPARIN 40 MG/0.4 ML SYRINGE SUBCUT SCH (09:34)
[2017-08-18] MEDS ORDERED: POTASSIUM CHLORIDE 20 MEQ TABLET PO ONE (09:35)
[2017-08-18] MEDS ORDERED: hydrALAZINE 20 MG/1 ML VIAL IV PRN (09:36)
[2017-08-18] MEDS ORDERED: SPIRONOLACTONE 25 MG TABLET PO SCH (10:00)
[2017-08-18] MEDS: amLODIPine 5 MG TABLET PO SCH ×2 (10:15→20:58)
[2017-08-18] MEDS ORDERED: MAGNESIUM SULF RIDER 2 GM in PREMIX 1 EACH IV PRN (11:18)
[2017-08-18] MEDS ORDERED: MAGNESIUM SULF RIDER 4 GM in PREMIX 1 EACH IV PRN (11:18)
[2017-08-18] MEDS ORDERED: ALUMINUM/MAGNES/SIMETH MAX STR 30 ML UDCUP PO PRN (12:08)
[2017-08-18] MEDS: DILTIAZEM 30 MG TABLET PO SCH ×2 (15:25→20:58)
[2017-08-18] MEDS: ASPIRIN EC 81 MG TABLET PO SCH (20:58)
[2017-08-19 05:01] LABS: Basophils % 0.4 % (0.0-0.8); Eosinophils % 0.2 % (0.00-10.9); Hemoglobin 11.7 GM/DL (12.0-16.0); Immature Granulocytes % 0.4 %; Immature Granulocytes Absolute 0.04 #; Lymphocytes # 1.1 10*3/uL (1.4-4.0); Lymphocytes % 12.2 % (21.3-54.2); Mean Corpuscular HGB Conc 34.4 GM/DL (32-36); Mean Corpuscular Hemoglobin 30 PG (27-34); Mean Corpuscular Volume 85.6 FL (87-102); Mean Platelet Volume 9.8 FL (9.6-12.0); Monocytes # 1.2 10*3/uL (0.11-0.8); Monocytes % 13.7 % (1.7-12.7); Neutrophils # 6.6 10*3/uL (1.4-7.4); Neutrophils % 73.1 % (38.7-73.9); Platelet Count 205 T/CUMM (130-400); Red Blood Count 3.97 MC/CUMM (3.8-5.5)
[2017-08-19 05:25] LABS: Calcium 9.4 MG/DL (8.5-10.1); Osmolality,Calculated 288.1 MOS/KG (273-304); Potassium 5.2 MMOL/L (3.5-5.1)
[2017-08-19] MEDS: PANTOPRAZOLE 40 MG TABLET PO SCH (09:14)
[2017-08-19] MEDS: ROSUVASTATIN 10 MG TABLET PO SCH (09:14)
[2017-08-19] MEDS: MONTELUKAST 10 MG TABLET PO SCH (09:14)
[2017-08-19] MEDS: LOSARTAN 25 MG TABLET PO SCH (09:15)
[2017-08-19] MEDS: ENOXAPARIN 40 MG/0.4 ML SYRINGE SUBCUT SCH (09:15)
[2017-08-19] MEDS: DILTIAZEM 30 MG TABLET PO SCH (09:15)
[2017-08-19] MEDS: amLODIPine 5 MG TABLET PO SCH ×2 (09:15→22:01)
[2017-08-19] MEDS: ASPIRIN EC 81 MG TABLET PO SCH (22:01)
[2017-08-20 06:01] LABS: Basophils # 0.1 10*3/uL (0.0-0.2); Basophils % 0.8 % (0.0-0.8); Eosinophils # 0.3 10*3/uL (0.0-0.87); Eosinophils % 4.1 % (0.00-10.9); Hematocrit 37.3 VOL% (35.7-47.0); Hemoglobin 12.2 GM/DL (12.0-16.0); Immature Granulocytes Absolute 0.07 #; Lymphocytes # 1.6 10*3/uL (1.4-4.0); Lymphocytes % 21.5 % (21.3-54.2); Mean Corpuscular HGB Conc 32.7 GM/DL (32-36); Mean Corpuscular Hemoglobin 29 PG (27-34); Mean Corpuscular Volume 87.6 FL (87-102); Monocytes # 1.5 10*3/uL (0.11-0.8); Neutrophils # 3.8 10*3/uL (1.4-7.4); Neutrophils % 51.6 % (38.7-73.9); Platelet Count 203 T/CUMM (130-400); Red Blood Count 4.26 MC/CUMM (3.8-5.5); Red Cell Distribution Width 15.8 % (9.3-17.3); White Blood Count 7.3 T/CUMM (4-12)
[2017-08-20 06:51] LABS: Calcium 9.2 MG/DL (8.5-10.1); Osmolality,Calculated 285.1 MOS/KG (273-304); Potassium 4.3 MMOL/L (3.5-5.1)
[2017-08-20 07:14] LABS: Burr Cells 1+; Eosinophils 4 % (0-10); Lymphocytes 18 % (20-55); Macrocytosis 1+; Myelocytes 1 %; Platelet Estimate Adequate; Polychromasia Slight; Segmented Neutrophils 56 % (50-85); Total Cells Counted 100
[2017-08-20] MEDS: ROSUVASTATIN 10 MG TABLET PO SCH (08:09)
[2017-08-20] MEDS: MONTELUKAST 10 MG TABLET PO SCH (08:09)
[2017-08-20] MEDS: LOSARTAN 25 MG TABLET PO SCH (08:10)
[2017-08-20] MEDS: PANTOPRAZOLE 40 MG TABLET PO SCH (08:10)
[2017-08-20] MEDS: ENOXAPARIN 40 MG/0.4 ML SYRINGE SUBCUT SCH (08:10)
[2017-08-20] MEDS: amLODIPine 5 MG TABLET PO SCH (08:10)
[2017-08-20] MEDS ORDERED: PHENOL 1.4% THROAT SPRAY 177 ML BOTTLE PO PRN (11:15)
[2017-08-20 11:52] VITALS: BP 115/78
== END 2017-08-20 13:54 | disposition home or self-care (01) | DRG 292 ==
LOC: EDUNIT# → EDBD → N.ED 19:16 → SUATTDRO 23:06 → N.EDINP 23:06 → N.ICU 08-18 00:24 → N.TELEN 08-18 19:45
PROVIDERS: ADMIT Internal Medicine; ATTEND Family Medicine

== ENCOUNTER 2017-09-15 11:40 | Inpatient (IN) ==
[2017-09-15 12:48] LABS: Basophils # 0.1 10*3/uL (0.0-0.2); Basophils % 0.3 % (0.0-0.8); Eosinophils # 0.1 10*3/uL (0.0-0.87); Eosinophils % 0.2 % (0.00-10.9); Hematocrit 40.9 VOL% (35.7-47.0); Hemoglobin 14.3 GM/DL (12.0-16.0); Immature Granulocytes % 1.1 %; Lymphocytes # 1.1 10*3/uL (1.4-4.0); Lymphocytes % 3.7 % (21.3-54.2); Mean Corpuscular Hemoglobin 30 PG (27-34); Mean Corpuscular Volume 86.3 FL (87-102); Mean Platelet Volume 10.5 FL (9.6-12.0); Monocytes # 2.7 10*3/uL (0.11-0.8); Monocytes % 9.4 % (1.7-12.7); Neutrophils # 24.2 10*3/uL (1.4-7.4); Neutrophils % 85.3 % (38.7-73.9); Platelet Count 224 T/CUMM (130-400); Red Blood Count 4.74 MC/CUMM (3.8-5.5); Red Cell Distribution Width 16.7 % (9.3-17.3); White Blood Count 28.4 T/CUMM (4-12)
[2017-09-15 12:55] LABS: Calcium 9.2 MG/DL (8.5-10.1); Osmolality,Calculated 281.7 MOS/KG (273-304)
[2017-09-15] MEDS ORDERED: POTASSIUM CHLORIDE 20 MEQ TABLET PO STA (13:09)
[2017-09-15 13:35] LABS: Band Neutrophils 4 % (0-10); Hypochromasia 2+; Lymphocytes 6 % (20-55); Macrocytosis 1+; Platelet Estimate Adequate; Segmented Neutrophils 88 % (50-85); Total Cells Counted 100
[2017-09-15 14:01] LABS: Sedimentation Rate-Westergren 15 MM/HR (0-30)
[2017-09-15 14:10] LABS: Apearance,Urine Slightly Hazy (Clear); Bacteria,Urine Occasional /HPF (Few); Bilirubin,Urine Negative (Negative); Blood, Urine Negative (Negative); Glucose,Urine (UA) Negative (Negative); Ketones,Urine Negative (Negative); Mucus,Urine Occasional /LPF (Occasional); Nitrite,Urine Negative (Negative); Protein,Urine 30 MG/DL; RBC,Urine 1 /HPF (0-4); Squamous Epithelial Cell,Urine Occasional /HPF (0-10); Urine Color Yellow (Yellow); Urine Specific Gravity 1.012 (1.001-1.035); Urine Urobilinogen < 2.0 EU/DL (0.2-1.0); WBC,Urine 17 /HPF (0-6)
[2017-09-15] MEDS ORDERED: LEVOFLOXACIN INJ 500 MG in PREMIX 1 EACH IV STA (14:40)
[2017-09-15] MEDS ORDERED: ONDANSETRON 4 MG/2 ML VIAL IV PRN (15:53)
[2017-09-15] MEDS ORDERED: SODIUM CHLORIDE 0.9% 1,000 ML IV SCH (16:00)
[2017-09-15] MEDS ORDERED: PROMETHAZINE 25 MG/1 ML VIAL IM ONE (18:29)
[2017-09-15] MEDS ORDERED: ALBUTEROL 2.5 MG/3 ML NEB RESP TX PRN (19:00)
[2017-09-15] MEDS ORDERED: LOSARTAN 50 MG TABLET PO SCH (21:00)
[2017-09-15] MEDS ORDERED: ENOXAPARIN 40 MG/0.4 ML SYRINGE SUBCUT SCH (21:00)
[2017-09-15] MEDS: ROSUVASTATIN 10 MG TABLET PO SCH (21:40)
[2017-09-15] MEDS: ASPIRIN EC 81 MG TABLET PO SCH (21:41)
[2017-09-15] MEDS ORDERED: NITROGLYCERIN SL 0.4 MG TABLET SL PRN (23:09)
[2017-09-15] MEDS: ACETAMINOPHEN 325 MG TABLET PO PRN (23:25)
[2017-09-15] MEDS ORDERED: ASPIRIN CHEW 81 MG TABLET PO ONE (23:30)
[2017-09-15 23:50] LABS: Basophils # 0.1 10*3/uL (0.0-0.2); Basophils % 0.2 % (0.0-0.8); Hemoglobin 12.8 GM/DL (12.0-16.0); Immature Granulocytes % 7.3 %; Immature Granulocytes Absolute 2.86 #; Lymphocytes # 1.2 10*3/uL (1.4-4.0); Lymphocytes % 3.1 % (21.3-54.2); Mean Corpuscular HGB Conc 33.7 GM/DL (32-36); Mean Corpuscular Hemoglobin 30 PG (27-34); Mean Corpuscular Volume 88.2 FL (87-102); Mean Platelet Volume 10.2 FL (9.6-12.0); Monocytes % 10.1 % (1.7-12.7); Neutrophils # 31.3 10*3/uL (1.4-7.4); Neutrophils % 79.3 % (38.7-73.9); Platelet Count 198 T/CUMM (130-400); Red Blood Count 4.31 MC/CUMM (3.8-5.5); Red Cell Distribution Width 16.4 % (9.3-17.3); White Blood Count 39.4 T/CUMM (4-12)
[2017-09-15 23:55] LABS: Bilirubin,Total 1.8 MG/DL (0.2-1.0); Calcium 8.9 MG/DL (8.5-10.1); Osmolality,Calculated 289.4 MOS/KG (273-304); Potassium 3.9 MMOL/L (3.5-5.1); Total Protein 6.4 G/DL (6.4-8.3)
[2017-09-16 01:06] LABS: Band Neutrophils 7 % (0-10); Lymphocytes 2 % (20-55); Segmented Neutrophils 85 % (50-85); Total Cells Counted 100
[2017-09-16 01:07] LABS: Platelet Estimate Adequate; Polychromasia Slight
[2017-09-16 06:44] LABS: Basophils # 0.1 10*3/uL (0.0-0.2); Basophils % 0.3 % (0.0-0.8); Hematocrit 38.4 VOL% (35.7-47.0); Hemoglobin 13.5 GM/DL (12.0-16.0); Immature Granulocytes % 7.6 %; Immature Granulocytes Absolute 2.94 #; Lymphocytes % 2.5 % (21.3-54.2); Mean Corpuscular HGB Conc 35.2 GM/DL (32-36); Mean Corpuscular Hemoglobin 30 PG (27-34); Mean Corpuscular Volume 85.7 FL (87-102); Mean Platelet Volume 10.2 FL (9.6-12.0); Monocytes # 4.2 10*3/uL (0.11-0.8); Monocytes % 10.9 % (1.7-12.7); Neutrophils # 30.3 10*3/uL (1.4-7.4); Neutrophils % 78.7 % (38.7-73.9); Platelet Count 192 T/CUMM (130-400); Red Blood Count 4.48 MC/CUMM (3.8-5.5); Red Cell Distribution Width 16.9 % (9.3-17.3); White Blood Count 38.5 T/CUMM (4-12)
[2017-09-16 06:57] LABS: Calcium 8.9 MG/DL (8.5-10.1); Osmolality,Calculated 287.5 MOS/KG (273-304)
[2017-09-16 07:10] LABS: Folate 19.2 NG/ML (5.4-24.0)
[2017-09-16 07:31] LABS: Band Neutrophils 9 % (0-10); Hypochromasia 1+; Lymphocytes 2 % (20-55); Polychromasia Slight; Segmented Neutrophils 87 % (50-85); Total Cells Counted 100
[2017-09-16 07:32] LABS: Anisocytosis 1+; Microcytosis 1+; Ovalocytes Slight; Platelet Estimate Adequate
[2017-09-16] MEDS ORDERED: BREO ELLIPTA INH SCH (09:00)
[2017-09-16] MEDS ORDERED: hydroCHLOROthiazide 12.5 MG CAPSULE PO SCH ×2 (09:00→21:00)
[2017-09-16] MEDS: ACETAMINOPHEN 325 MG TABLET PO PRN (09:40)
[2017-09-16] MEDS: MORPHINE 4 MG/1 ML VIAL IV PRN (10:36)
[2017-09-16] MEDS ORDERED: FUROSEMIDE 40 MG/4 ML VIAL IV ONE (10:52)
[2017-09-16 10:53] LABS: Troponin I Only 0.576 NG/ML (0.00-0.045)
[2017-09-16] MEDS ORDERED: AZTREONAM 1,000 MG in SYRINGE 1 EACH IV ONE (11:45)
[2017-09-16] MEDS ORDERED: VANCOMYCIN INJ 1,000 MG in SODIUM CHLORIDE 0.9% 250 ML IV SCH (14:00)
[2017-09-16] MEDS: LEVOFLOXACIN INJ 250 MG in PREMIX 1 EACH IV SCH (15:33)
[2017-09-16] MEDS ORDERED: diphenhydrAMINE CAP 25 MG CAPSULE PO PRN (16:20)
[2017-09-16] MEDS: HEPARIN DRIP 25,000 UNITS/500 ML PREMIX IV SCH (18:18)
[2017-09-16] MEDS: ASPIRIN EC 81 MG TABLET PO SCH (21:18)
[2017-09-16] MEDS: ROSUVASTATIN 10 MG TABLET PO SCH (21:18)
[2017-09-16] MEDS ORDERED: AZTREONAM 500 MG in SYRINGE 1 EACH IV SCH (23:45)
[2017-09-17] MEDS ORDERED: SODIUM CHLORIDE 0.9% 500 ML IV ONE ×2 (04:28→14:50)
[2017-09-17] MEDS: PHENYLEPHRINE DRIP 40 MG/250 ML PREMIX IV PRN ×3 (07:06→22:19)
[2017-09-17 07:55] LABS: ABG Base Excess -6.9 MMOL/L (-2.5-2.5); ABG HCO3 18.9 MMOL/L (20-26); ABG Oxygen Saturation 97.4 % (95-100); ABG PCO2 30.6 MM HG (35-48); ABG PH 7.363 (7.35-7.45); ABG TCO2 15.2 MMOL/L (23-27); Pt O2 Delivery Device Venturi Mask
[2017-09-17 11:02] LABS: Amorphous Crystals,Urine Few /HPF (Few); Apearance,Urine Slightly Hazy (Clear); Bacteria,Urine Occasional /HPF (Few); Bilirubin,Urine Negative (Negative); Blood, Urine Negative (Negative); Glucose,Urine (UA) Negative (Negative); Hyaline Casts,Urine 7 /LPF (0-3); Ketones,Urine Negative (Negative); Nitrite,Urine Negative (Negative); Protein,Urine 30 MG/DL; RBC,Urine 1 /HPF (0-4); Squamous Epithelial Cell,Urine Occasional /HPF (0-10); Urine Color Amber (Yellow); Urine Specific Gravity 1.015 (1.001-1.035); Urine Urobilinogen < 2.0 EU/DL (0.2-1.0); WBC,Urine 1 /HPF (0-6)
[2017-09-17] MEDS ORDERED: LEVOFLOXACIN 250 MG TABLET PO ONE (13:41)
[2017-09-17] MEDS: AZTREONAM 500 MG in SYRINGE 1 EACH IV SCH (13:42)
[2017-09-17] MEDS: LEVOFLOXACIN INJ 250 MG in PREMIX 1 EACH IV SCH (13:43)
[2017-09-17] MEDS: MORPHINE 4 MG/1 ML VIAL IV PRN (13:50)
[2017-09-17] MEDS: HEPARIN DRIP 25,000 UNITS/500 ML PREMIX IV SCH (16:57)
[2017-09-17] MEDS ORDERED: HEPARIN/NACL 0.9% 2 UNITS/ML 500 ML IV ONE (17:13)
[2017-09-17] MEDS ORDERED: SODIUM CHLORIDE 0.9% 250 ML IV ONE (18:02)
[2017-09-17] MEDS: ROSUVASTATIN 10 MG TABLET PO SCH (21:17)
[2017-09-17] MEDS: ASPIRIN EC 81 MG TABLET PO SCH (21:17)
[2017-09-18] MEDS: MORPHINE 4 MG/1 ML VIAL IV PRN (00:06)
[2017-09-18] MEDS: AZTREONAM 500 MG in SYRINGE 1 EACH IV SCH (00:07)
[2017-09-18] MEDS: PHENYLEPHRINE DRIP 40 MG/250 ML PREMIX IV PRN ×2 (02:05→08:18)
[2017-09-18 03:34] LABS: ABG Base Excess -20.6 MMOL/L (-2.5-2.5); ABG HCO3 9.9 MMOL/L (20-26); ABG Oxygen Saturation 95.1 % (95-100); ABG PCO2 24.7 MM HG (35-48); ABG TCO2 7.4 MMOL/L (23-27); Allen Test Positive; Pt O2 Delivery Device Venturi Mask
[2017-09-18 03:36] LABS: ABG PH 7.122 (7.35-7.45)
[2017-09-18] MEDS ORDERED: SODIUM BICARBONATE 50 MEQ/50 ML SYRINGE IV ONE ×2 (03:43→04:00)
[2017-09-18 05:11] LABS: Calcium 7.9 MG/DL (8.5-10.1); Osmolality,Calculated 296.3 MOS/KG (273-304)
[2017-09-18] MEDS ORDERED: DEXTROSE 50% 25 GM/50 ML VIAL IV PRN (05:21)
[2017-09-18 05:24] LABS: Basophils # 0.1 10*3/uL (0.0-0.2); Basophils % 0.2 % (0.0-0.8); Hematocrit 37.1 VOL% (35.7-47.0); Hemoglobin 12.5 GM/DL (12.0-16.0); Immature Granulocytes % 1.6 %; Immature Granulocytes Absolute 0.36 #; Lymphocytes # 0.8 10*3/uL (1.4-4.0); Lymphocytes % 3.7 % (21.3-54.2); Mean Corpuscular HGB Conc 33.7 GM/DL (32-36); Mean Corpuscular Hemoglobin 30 PG (27-34); Mean Corpuscular Volume 88.1 FL (87-102); Mean Platelet Volume 10.5 FL (9.6-12.0); Monocytes # 1.6 10*3/uL (0.11-0.8); Monocytes % 7.4 % (1.7-12.7); NRBC # 0.04 10*3/uL; Neutrophils # 19.2 10*3/uL (1.4-7.4); Neutrophils % 87.1 % (38.7-73.9); Platelet Count 190 T/CUMM (130-400); Red Blood Count 4.21 MC/CUMM (3.8-5.5); Red Cell Distribution Width 16.5 % (9.3-17.3)
[2017-09-18] MEDS: HEPARIN DRIP 25,000 UNITS/500 ML PREMIX IV SCH ×2 (07:07→17:01)
[2017-09-18] MEDS ORDERED: SODIUM BICARB INJ 100 MEQ in DEXTROSE 5% 1,000 ML IV SCH (07:30)
[2017-09-18 08:29] LABS: Band Neutrophils 3 % (0-10); Burr Cells Few; Lymphocytes 4 % (20-55); Microcytosis 1+; Polychromasia Slight; Segmented Neutrophils 89 % (50-85); Total Cells Counted 100
[2017-09-18 08:30] LABS: Anisocytosis 1+; Ovalocytes Slight; Platelet Estimate Adequate
[2017-09-18] MEDS ORDERED: VANCOMYCIN INJ 1,000 MG in SODIUM CHLORIDE 0.9% 250 ML IV PRN (09:30)
[2017-09-18 09:37] LABS: Lactic Acid 4.5 MMOL/L (0.4-2.0)
[2017-09-18] MEDS: SODIUM BICARB INJ 150 MEQ in DEXTROSE 5% 1,000 ML IV SCH ×2 (10:47→21:16)
[2017-09-18] MEDS: AZTREONAM 250 MG in SYRINGE 1 EACH IV SCH (12:10)
[2017-09-18] MEDS: PHENYLEPHRINE INJ 160 MG in SODIUM CHLORIDE 0.9% 234 ML IV PRN ×2 (12:18→21:47)
[2017-09-18] MEDS ORDERED: VANCOMYCIN INJ 1,000 MG in SODIUM CHLORIDE 0.9% 250 ML IV ONE (12:30)
[2017-09-18] MEDS ORDERED: SODIUM CHLORIDE 0.9% 500 ML IV ONE ×2 (13:44→18:20)
[2017-09-18] MEDS ORDERED: ALBUMIN 5% 25 GM in PREMIX 1 EACH IV ONE (13:44)
[2017-09-18 14:06] LABS: Lactic Acid 3.3 MMOL/L (0.4-2.0)
[2017-09-18] MEDS: LEVOFLOXACIN INJ 250 MG in PREMIX 1 EACH IV SCH (14:11)
[2017-09-18] MEDS ORDERED: METOPROLOL TARTRATE 5 MG/5 ML VIAL IV ONE ×2 (17:22→17:23)
[2017-09-18] MEDS ORDERED: NOREPINEPHRINE 4 MG/4 ML VIAL IV ONE (18:18)
[2017-09-18] MEDS: NOREPINEPHRINE 8 MG in SODIUM CHLORIDE 0.9% 242 ML IV PRN (18:26)
[2017-09-18 18:34] LABS: ABG Base Excess -14.4 MMOL/L (-2.5-2.5); ABG HCO3 11.9 MMOL/L (20-26); ABG Oxygen Saturation 91.9 % (95-100); ABG PCO2 29.6 MM HG (35-48); ABG PH 7.223 (7.35-7.45); ABG PO2 81.5 MM HG (80-95); ABG TCO2 12.8 MMOL/L (23-27)
[2017-09-18] MEDS ORDERED: AMIODARONE INJ 150 MG in DEXTROSE 5% 100 ML IV ONE (18:50)
[2017-09-18] MEDS ORDERED: AMIODARONE INJ 450 MG in DEXTROSE 5% 241 ML IV SCH (19:00)
[2017-09-18] MEDS ORDERED: ACETAMINOPHEN 325 MG SUPP RECTAL PRN (21:32)
[2017-09-18] MEDS: ASPIRIN EC 81 MG TABLET PO SCH (22:07)
[2017-09-18] MEDS: ROSUVASTATIN 10 MG TABLET PO SCH (22:07)
[2017-09-19] MEDS ORDERED: SUCCINYLCHOLINE 200 MG/10 ML VIAL ONE (00:37)
[2017-09-19 00:39] LABS: ABG Base Excess -16.8 MMOL/L (-2.5-2.5); ABG HCO3 11.7 MMOL/L (20-26); ABG Oxygen Saturation 85.8 % (95-100); ABG PCO2 46.8 MM HG (35-48); ABG PO2 78.3 MM HG (80-95); ABG TCO2 12.8 MMOL/L (23-27); Allen Test Positive; Pt O2 Delivery Device Venturi Mask
[2017-09-19 00:41] LABS: ABG PH 7.066 (7.35-7.45)
[2017-09-19] MEDS ORDERED: NOREPINEPHRINE 4 MG/4 ML VIAL IV ONE ×2 (00:55→08:04)
[2017-09-19 01:12] LABS: Basophils # 0.2 10*3/uL (0.0-0.2); Basophils % 0.9 % (0.0-0.8); Eosinophils % 0.1 % (0.00-10.9); Hematocrit 32.3 VOL% (35.7-47.0); Hemoglobin 10.9 GM/DL (12.0-16.0); Immature Granulocytes % 9.1 %; Immature Granulocytes Absolute 1.53 #; Lymphocytes % 11.9 % (21.3-54.2); Mean Corpuscular HGB Conc 33.7 GM/DL (32-36); Mean Corpuscular Hemoglobin 30 PG (27-34); Mean Corpuscular Volume 87.8 FL (87-102); Mean Platelet Volume 10.9 FL (9.6-12.0); Monocytes % 12.1 % (1.7-12.7); NRBC # 0.54 10*3/uL; Neutrophils # 11.1 10*3/uL (1.4-7.4); Neutrophils % 65.9 % (38.7-73.9); Platelet Count 138 T/CUMM (130-400); Red Blood Count 3.68 MC/CUMM (3.8-5.5); Red Cell Distribution Width 16.3 % (9.3-17.3); White Blood Count 16.8 T/CUMM (4-12)
[2017-09-19] MEDS: NOREPINEPHRINE 8 MG in SODIUM CHLORIDE 0.9% 242 ML IV PRN ×4 (01:21→12:16)
[2017-09-19 01:29] LABS: Lactic Acid 12.1 MMOL/L (0.4-2.0)
[2017-09-19 01:30] LABS: CKMB % 1.7 %
[2017-09-19 01:31] LABS: Blood Urea Nitrogen 75 MG/DL (7-18); Calcium 6.6 MG/DL (8.5-10.1); Glucose 178 MG/DL (74-106); Osmolality,Calculated 300.7 MOS/KG (273-304); Sodium 138 MMOL/L (136-145)
[2017-09-19] MEDS: fentaNYL INJ 1,250 MCG in SODIUM CHLORIDE 0.9% 225 ML IV PRN ×2 (01:31→12:16)
[2017-09-19] MEDS: AZTREONAM 250 MG in SYRINGE 1 EACH IV SCH ×2 (01:34→12:09)
[2017-09-19 01:37] LABS: Troponin I Only 5.16 NG/ML (0.00-0.045)
[2017-09-19 01:38] LABS: Potassium 6.1 MMOL/L (3.5-5.1)
[2017-09-19 01:43] LABS: Band Neutrophils 11 % (0-10); Lymphocytes 15 % (20-55); Metamyelocytes 1 %; Myelocytes 2 %; Nucleated Red Blood Cells 5 (0-5); Segmented Neutrophils 71 % (50-85); Total Cells Counted 100
[2017-09-19 01:44] LABS: Anisocytosis 1+; Poikilocytosis 1+
[2017-09-19 01:45] LABS: Ovalocytes Few; Platelet Estimate Normal
[2017-09-19] MEDS ORDERED: SODIUM CHLORIDE 0.9% 500 ML IV ONE ×4 (01:53→11:32)
[2017-09-19 01:56] LABS: ABG Base Excess -13.3 MMOL/L (-2.5-2.5); ABG HCO3 14.2 MMOL/L (20-26); ABG Oxygen Saturation 97.2 % (95-100); ABG PCO2 38.7 MM HG (35-48); ABG TCO2 13.5 MMOL/L (23-27)
[2017-09-19 01:57] LABS: ABG PH 7.182 (7.35-7.45)
[2017-09-19] MEDS ORDERED: SODIUM CHLORIDE 0.9% 250 ML IV ONE (01:59)
[2017-09-19] MEDS: AMIODARONE INJ 450 MG in DEXTROSE 5% 241 ML IV SCH ×2 (02:23→08:11)
[2017-09-19] MEDS ORDERED: SODIUM POLYSTYRENE SULFATE 15 GM/60 ML BOTTLE PO ONE (02:30)
[2017-09-19] MEDS ORDERED: CLOPIDOGREL 300 MG TABLET PO ONE (02:30)
[2017-09-19] MEDS ORDERED: SODIUM BICARBONATE 50 MEQ/50 ML SYRINGE IV ONE ×3 (02:30→14:00)
[2017-09-19 04:32] LABS: ABG Base Excess -9.3 MMOL/L (-2.5-2.5); ABG HCO3 17.1 MMOL/L (20-26); ABG Oxygen Saturation 97.6 % (95-100); ABG PCO2 50.6 MM HG (35-48); ABG TCO2 17.7 MMOL/L (23-27); Allen Test Positive; Pt O2 Delivery Device Ventilator
[2017-09-19 04:38] LABS: ABG PH 7.191 (7.35-7.45)
[2017-09-19] MEDS: PHENYLEPHRINE INJ 160 MG in SODIUM CHLORIDE 0.9% 234 ML IV PRN ×2 (05:25→12:15)
[2017-09-19 05:40] LABS: Basophils # 0.1 10*3/uL (0.0-0.2); Basophils % 0.9 % (0.0-0.8); Eosinophils % 0.1 % (0.00-10.9); Hemoglobin 11.3 GM/DL (12.0-16.0); Immature Granulocytes % 6.6 %; Immature Granulocytes Absolute 0.91 #; Lymphocytes % 7.4 % (21.3-54.2); Mean Corpuscular HGB Conc 34.2 GM/DL (32-36); Mean Corpuscular Hemoglobin 29 PG (27-34); Mean Corpuscular Volume 84.8 FL (87-102); Mean Platelet Volume 10.5 FL (9.6-12.0); Monocytes # 1.5 10*3/uL (0.11-0.8); Monocytes % 10.7 % (1.7-12.7); NRBC # 0.87 10*3/uL; Neutrophils # 10.3 10*3/uL (1.4-7.4); Neutrophils % 74.3 % (38.7-73.9); Platelet Count 142 T/CUMM (130-400); Red Blood Count 3.89 MC/CUMM (3.8-5.5); Red Cell Distribution Width 15.8 % (9.3-17.3); White Blood Count 13.8 T/CUMM (4-12)
[2017-09-19 06:58] LABS: Calcium 6.2 MG/DL (8.5-10.1); Osmolality,Calculated 306.4 MOS/KG (273-304); Potassium 4.7 MMOL/L (3.5-5.1)
[2017-09-19 07:03] LABS: ABG Base Excess -8.1 MMOL/L (-2.5-2.5); ABG HCO3 17.9 MMOL/L (20-26); ABG Oxygen Saturation 95.8 % (95-100); ABG PCO2 45.2 MM HG (35-48); ABG PH 7.239 (7.35-7.45); ABG PO2 97.5 MM HG (80-95); ABG TCO2 17.6 MMOL/L (23-27)
[2017-09-19] MEDS: SODIUM BICARB INJ 150 MEQ in DEXTROSE 5% 1,000 ML IV SCH ×2 (07:40→15:37)
[2017-09-19 07:53] LABS: Band Neutrophils 4 % (0-10); Burr Cells Slight; Lymphocytes 11 % (20-55); Macrocytosis 2+; Nucleated Red Blood Cells 6 (0-5); Platelet Estimate Adequate; Segmented Neutrophils 71 % (50-85); Target Cells Slight; Total Cells Counted 100
[2017-09-19] MEDS ORDERED: CLOPIDOGREL 75 MG TABLET PO SCH (09:00)
[2017-09-19 09:12] LABS: Allen Test Positive; Pt O2 Delivery Device Ventilator
[2017-09-19 09:13] LABS: ABG Base Excess -6.6 MMOL/L (-2.5-2.5); ABG Oxygen Saturation 96.4 % (95-100); ABG PCO2 41.4 MM HG (35-48); ABG PH 7.288 (7.35-7.45); ABG TCO2 17.9 MMOL/L (23-27)
[2017-09-19] MEDS: ALBUMIN 25% 25 GM in PREMIX 1 EACH IV SCH ×2 (09:23→16:28)
[2017-09-19 09:40] LABS: Albumin 2.2 G/DL (3.4-5.0); Bilirubin,Direct 1.06 MG/DL (0.0-0.20); Bilirubin,Indirect 0.3 MG/DL (0.0-1.0); Bilirubin,Total 1.4 MG/DL (0.2-1.0); Total Protein 5.6 G/DL (6.4-8.3)
[2017-09-19] MEDS ORDERED: NOREPINEPHRINE 16 MG in SODIUM CHLORIDE 0.9% 234 ML IV PRN (12:59)
[2017-09-19] MEDS ORDERED: HEPARIN/NACL 0.9% 2 UNITS/ML 500 ML IV ONE (13:52)
[2017-09-19] MEDS ORDERED: SODIUM CHLORIDE 0.9% 1,000 ML IV ONE (14:00)
[2017-09-19 15:07] LABS: ABG Base Excess -3.4 MMOL/L (-2.5-2.5); ABG HCO3 21.5 MMOL/L (20-26); ABG Oxygen Saturation 96.7 % (95-100); ABG PCO2 57.6 MM HG (35-48); ABG PH 7.235 (7.35-7.45); ABG TCO2 23.2 MMOL/L (23-27)
[2017-09-19] MEDS: LEVOFLOXACIN INJ 250 MG in PREMIX 1 EACH IV SCH (15:33)
[2017-09-19 15:39] LABS: ABG Base Excess -13.3 MMOL/L (-2.5-2.5); ABG HCO3 13.4 MMOL/L (20-26); ABG Oxygen Saturation 43.5 % (95-100); ABG PCO2 54.6 MM HG (35-48); ABG TCO2 16.2 MMOL/L (23-27)
[2017-09-19 15:54] LABS: ABG PH 7.089 (7.35-7.45)
[2017-09-19] MEDS: HEPARIN DRIP 25,000 UNITS/500 ML PREMIX IV SCH (16:30)
[2017-09-19 17:16] VITALS: BP 62/46
[2017-09-19] MEDS ORDERED: VANCOMYCIN INJ 1,000 MG in SODIUM CHLORIDE 0.9% 250 ML IV ONE (18:00)
== END 2017-09-19 17:43 | disposition expired | DRG 871 ==
LOC: N.ED 11:40 → SUATTDRO 14:54 → N.EDINP 14:54 → N.5E 16:09 → N.ICU 09-17 06:20
PROVIDERS: ADMIT Internal Medicine Nephrology; ATTEND Family Medicine